=== PATIENT | male | born 1985 | race Caucasian/White ===

== ENCOUNTER 2019-05-02 07:02 | Emergency (ER) | payer SELFPAY ==
[~2019-05-02] VITALS: Wt 61.2 kg
[2019-05-02 07:05] VITALS: BP 133/83; PULSE 75; RESP 20
--- NOTE | 2019-05-02 07:37 | ERD ---
ER Documentation Chief Complaint Chief Complaint ALLERGIC REACTION TO TERMITE/BED BUG SPRAY, LIP SWELLING, SOB, TIRED HPI 34-year-old male presents the emergency department after exposure. Patient states he was at work when he put his donut down and then ate it. It was slightly wet and he thinks it was exposed to a bug spray. He is felt some swelling about his upper lip and he felt fatigued. He had no rash, wheezing. He reports no fevers. He reports feeling nauseous but has had no emesis. He reports no significant abdominal pain. ROS All systems reviewed and are negative except as per history of present illness. Physical Exam Vitals Vital Signs Date Temp Pulse Resp B/P (MAP) Pulse Ox O2 O2 Flow FiO2 Time Delivery Rate 05/02/19 98.0 75 20 133/83 100 07:05 (100) Physical Exam GENERAL: The patient is well developed and appropriate for usual state of health in no apparent distress HEENT: Pupils equal, round, and reactive to light. EOMI. There is no scleral icterus. No significant swelling about the lips, tongue or uvula. The oropharynx is normal. NECK: C-spine is soft and supple, there is no meningismus. There is no cervical lymphadenopathy. No stridor LUNGS: Clear to auscultation bilaterally. There are no rales, wheezes or rho nchi. Good tidal volume HEART: Regular rate and rhythm, no murmurs, clicks, rubs or gallops. ABDOMEN: Soft, non-tender, non-distended. There are bowel sounds in all four quadrants. No rebound or guarding. EXTREMITIES: There is no peripheral cyanosis or edema. No focal swelling or erythema. NEURO: The patient moves all four extremities with 5/5 strength. Cranial nerves II - XII are intact. Normal gait. Alert and oriented SKIN: There is no apparent rash or petechiae. HEME/LYMPHATIC: There is no evidence of excessive bruising or lymphedema. PSYCHIATRIC: The patient does not appear anxious or depressed. Procedures/MDM Patient was taken to a room, seen and examined Medical decision makin-year-old otherwise healthy male presents with what appears to be a nontoxic exposure. At this time he shows no evidence of systemic allergic reaction including no evidence of anaphylaxis. He has no other significant findings of a contact reaction. Patient's neurologic, cardiac as well as abdominal examination are benign and he seems appropriate for outpatient supportive care after reassurance. Departure Diagnosis: Primary Impression: Allergic reaction Condition: Stable Patient Instructions: First Aid: Allergic Reactions CHRISTY GALLARDO May 02, 2019 07:37
== END 2019-05-02 08:02 | disposition home or self-care (01) ==
LOC: FTE 07:02
DX: R22.0 Localized swelling, mass and lump, head (principal); R53.83 Other fatigue; R11.0 Nausea; R06.02 Shortness of breath
CPT/HCPCS: 99282